=== PATIENT | female | born 1985 | race Caucasian/White ===

== ENCOUNTER 2018-11-14 09:09 | Emergency (ER) | payer SELFPAY ==
[~2018-11-14] VITALS: Ht 160 cm; Wt 60.0 kg
[2018-11-14 09:18] VITALS: TEMP 98.7
[2018-11-14] MEDS ORDERED: BUSPAR DIVIDOSE15 MG PO (09:23)
[2018-11-14] MEDS ORDERED: WELLBUTRIN 100100 MG PO (09:24)
[2018-11-14] MEDS ORDERED: SAPHRIS10 MG SL (09:25)
[2018-11-14] MEDS ORDERED: AMOXICILLIN875 MG PO (10:36)
[2018-11-14] MEDS ORDERED: PROVENTIL0.09 MG/A1 IH (10:36)
[2018-11-14] MEDS ORDERED: CHERATUSSIN AC120 ML PO (10:37)
[2018-11-14 11:35] VITALS: BP 117/87; PULSE 81
== END 2018-11-14 11:35 | disposition home or self-care (01) ==
LOC: COL.ER 09:09
DX: J20.9 Acute bronchitis, unspecified (principal); R51 Headache; F31.9 Bipolar disorder, unspecified; F17.210 Nicotine dependence, cigarettes, uncomplicated
CPT/HCPCS: J1885; J2550